=== PATIENT | female | born 1980 ===

== ENCOUNTER 2024-02-06 12:07 | Day surgery (SDC) | payer OTHER ==
[~2024-02-06] VITALS: Ht 152.4 cm; Wt 66.7 kg
[2024-02-06] MEDS ORDERED: fentaNYL CITRATE/PF 100 MCG/2 ML AMP ONE (12:28)
[2024-02-06] MEDS ORDERED: MIDAZOLAM HCL 5 MG/5 ML VIAL ONE (12:28)
[2024-02-06 13:29] VITALS: O2SAT 98
[2024-02-06 17:08] VITALS: BP_SYST 150; PULSE 66; RESP 18
== END 2024-02-06 16:15 | disposition home or self-care (01) ==
LOC: SDS 12:07 → SMU 12:09 → SDS 16:15
PROVIDERS: ATTEND Surgery
DX: K62.5 Hemorrhage of anus and rectum (principal); K64.8 Other hemorrhoids; K62.89 Other specified diseases of anus and rectum; J45.909 Unspecified asthma, uncomplicated; G43.909 Migraine, unspecified, not intractable, without status migrainosus; Z90.710 Acquired absence of both cervix and uterus
CPT/HCPCS: 45378; 99152; 99153; G0378; J2250; J3010